=== PATIENT | female | born 2000 | race African-American/Black ===

== ENCOUNTER 2023-06-04 07:11 | Emergency (ER) | payer OTHER, SELFPAY ==
[2023-06-04] MEDS ORDERED: Sterile Water 10 ML ONE (07:43)
[2023-06-04] MEDS ORDERED: cefTRIAXone (ROCEPHIN) 500 MG VIAL ONE (07:43)
[2023-06-04 08:03] LABS: BHCG - Serum Negative (NEGATIVE); Pregs Control Background? CLEAR/WHITE (CLR/WHITE); Pregs Control Bar Appear? YES (CONTROL BAR)
[2023-06-04 08:19] LABS: HIV (1/2) Antibody/Antigen Non-Reactive (NonReactive); HIV 1/2 INDEX 0.08 S/CO (<1.00)
[2023-06-04 08:39] LABS: Syphilis Antibody Nonreactive (Nonreactive); Syphilis Antibody Index 0.09 S/CO (<1.00 Non-Reactive)
[2023-06-05 00:57] LABS: Chlamydia by PCR, Vaginal Swab Not Detected (NotDetected); GC by PCR, Vaginal Swab Not Detected (NotDetected)
== END 2023-06-04 09:00 | disposition home or self-care (01) ==
LOC: CSHERS 07:11
DX: J06.9 Acute upper respiratory infection, unspecified (principal); Z20.2 Contact with and (suspected) exposure to infections with a predominantly sexual mode of transmission
CPT/HCPCS: 36415; 84703; 86780; 87389; 87480; 87491; 87510; 87591; 87660; 96372; 99283; J0696

== ENCOUNTER 2023-08-28 07:16 | Emergency (ER) | payer SELFPAY ==
[2023-08-28 08:10] LABS: Bilirubin Neg (Negative); Blood, Urine Negative (Negative); Glucose, Urine (Dipstick) Normal (Negative); Ketone, Urine Negative (Negative); Leukocyte 25 (Negative); Nitrite Negative (Negative); Protein, Urine (Dipstick) Negative (Neg-Trace); Specific Gravity, Urine 1.015 (1.005-1.030)
[2023-08-28 08:12] LABS: Clarity Slightly Cloudy (Clear)
[2023-08-28 08:13] LABS: Pregnancy Test - Urine (BHCG) Negative (Negative); Pregu Control Background? CLEAR/WHITE (CLR/WHITE); Pregu Control Bar Appear? YES (CONTROL BAR); Specific Gravity 1.015 (1.002-1.036)
[2023-08-28 08:18] LABS: Bacteria/HPF 1+ HPF (None Seen); CAUTI Indications for Culture Pregnancy; RBC/HPF 0-3 HPF (0-3)
[2023-08-28 08:20] LABS: Urine Culture Reflex Yes Yes
== END 2023-08-28 08:32 | disposition home or self-care (01) ==
LOC: CSHERS 07:16
DX: N92.6 Irregular menstruation, unspecified (principal)
CPT/HCPCS: 81001; 81025; 87077; 87086; 99282

== ENCOUNTER 2025-03-26 14:53 | Emergency (ER) | payer SELFPAY ==
[2025-03-26] MEDS ORDERED: Ibuprofen 200 MG TAB ONE (15:37)
== END 2025-03-26 16:24 | disposition home or self-care (01) ==
LOC: CSHERS 14:53
DX: S46.911A Strain of unspecified muscle, fascia and tendon at shoulder and upper arm level, right arm, initial encounter (principal); G56.11 Other lesions of median nerve, right upper limb; W51.XXXA Accidental striking against or bumped into by another person, initial encounter
CPT/HCPCS: 99283